=== PATIENT | male | born 1980 | race Two or more races ===

== ENCOUNTER 2024-02-25 00:04 | Emergency (ER) | payer MEDICAID ==
[~2024-02-25] VITALS: Ht 154.9 cm; Wt 64.7 kg
[2024-02-25 00:19] VITALS: BP 128/92; PULSE 86; RESP 20; TEMP 97.6; O2SAT 97
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
[2024-02-25] MEDS: KETOROLAC TROMETH 60MG/2ML VIAL IM ONE (01:45)
[2024-02-25] MEDS: HYDROcodone-ACET 5/325MG TAB PO ONE (01:59)
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
== END 2024-02-25 06:41 | disposition home or self-care (01) ==
LOC: ER 00:04
DX: S43.402A Unspecified sprain of left shoulder joint, initial encounter (principal); S20.212A Contusion of left front wall of thorax, initial encounter; Y04.2XXA Assault by strike against or bumped into by another person, initial encounter; Y93.89 Activity, other specified; Y92.89 Other specified places as the place of occurrence of the external cause; Y99.8 Other external cause status
CPT/HCPCS: 71101; 73030; 96372; 99284; J1885